=== PATIENT | female | born 1990 | race Caucasian/White ===

== ENCOUNTER 2017-04-21 16:11 | Emergency (ER) | payer OTHER ==
[~2017-04-21 16:11] MED LIST: AMBIEN10 MG PO; CYMBALTA60 MG PO; DEPAKOTE D500 MG/TA1 PO; DEPAKOTE500 MG PO; FAMOTIDINE20 MG PO; GLYBURIDE; GLYBURIDE5 MG; IBUPROFEN400 MG PO; IRON1 TA1; IRON1 TA1 PO; IUD; KEFLEX500 MG PO; PRENATAL VITAMI1 TAB; PRENATAL1 EACH PO; PRENATAL1 TAB; PROZAC20 MG PO; SUMAVEL DO6 MG/0.5 M SQ; TAMIFLU75 MG PO; TOPAMAX25 MG PO; TOPAMAX50 MG PO; TRAZODONE50 MG PO
[2017-04-21] MEDS ORDERED: NO HOME MEDICATION XX (17:53)
[2017-04-21] MEDS ORDERED: AMOXICILLIN875 M1 PO (18:22)
== END 2017-04-21 18:44 ==
LOC: EDMED 16:11
DX: J02.0 Streptococcal pharyngitis (principal); J45.909 Unspecified asthma, uncomplicated; Z98.890 Other specified postprocedural states; Z79.51 Long term (current) use of inhaled steroids